=== PATIENT | female | born 1940 | race Caucasian/White ===

== ENCOUNTER 2018-02-25 04:06 | Inpatient (IN) | payer OTHER ==
[~2018-02-25] VITALS: Ht 170.2 cm; Wt 94.3 kg
--- NOTE | 2018-02-25 04:56 | ED DYSPNEA/ASTHMA COMPLAINT ---
History of Present Illness General Chief Complaint: Dyspnea (COPD, CHF, Other) Stated Complaint: BIBA SOB Source: patient, old records, EMS, W10 Exam Limitations: dementia Vital Signs & Intake/Output Vital Signs & Intake/Output Vital Signs Date Time Temp Pulse Resp B/P B/P Pulse O2 O2 Flow FiO2 Mean Ox Delivery Rate 02/25 0431 93 Nasal 2.0L Cannula 02/25 0415 97.8 100 20 106/59 91 Room Air Allergies Coded Allergies: Penicillins (Intermediate, UNKNOWN 02/25/18) tramadol (Intermediate, UNKNOWN 02/25/18) Triage Note: BIBA FROM ECF. PER EMS PT WAS FOUND TO BE SOB AND WAS 86=88%RA. ECF GAVE 1 DUO NEB WITHOUT IMPROVEMENT. PT RECIEVED ANOTHER NEB TX ENROUTE. PT PLACED ON MONITOR, O2 ON ROOM AIR 90-91%, PT PLACED ON 2 L NC 93%. PER ECF PT ALSO VOMITED COFFEE GROUND EMESIS. PT NOTED TO HAVE DARK STAINING IN MOUTH. PT ARRIVES COMPLAINING OF BILATERAL KNEE PAIN (CHRONIC). PT ALERT TO NAME AND YEAR, KNOWS SHES IN A HOSPITAL BUT NOT THE NAME OF IT. PT REFUSING LABS UNTIL "I GET SOMETHING FOR THE PAIN". DR SHAFFER AWARE. Triage Nurses Notes Reviewed? yes Onset: Just prior to arrival Duration: minute(s):, constant, continues in ED Timing: recent history Severity: moderate Activities at Onset: rest Prior Episodes/Possible Cause: occasional episodes Modifying Factors: Improves With: other (oxygen). Associated Symptoms: cough LMP (ages 10-50): post menopausal : No Patient currently breastfeeds: No HPI: Prior to admission shelter staff phone patient had episode of nausea vomiting followed by increased work of breathing shortness of breath. Her oxygen saturation was in the mid 80s she received supplemental O2 and DuoNeb. The patient complains of chronic knee pain. There's been no fever chills diarrhea chest pain cough headache dysuria rash bleeding. Past History Travel History Traveled to [place] past 21 day No Medical History Any Pertinent Medical History? see below for history Neurological: NONE EENT: NONE Cardiovascular: hyperlipidemia Respiratory: PNEUMONITIS Gastrointestinal: GERD Hepatic: NONE Renal: FRANCISCO URINARY RETENTION Musculoskeletal: osteoarthritis Psychiatric: anxiety, bipolar disease, depression, insomnia Endocrine: diabetes, VIT B DEFCICENCY Blood Disorders: anemia Cancer(s): NONE BURN OUT TENDER LACE/Reproductive: NONE Surgical History Surgical History: non-contributory Psychosocial History Tobacco Use: Never used ETOH Use: denies use Illicit Drug Use: denies illicit drug use Family History Hx Contributory? No Review of Systems Review of Systems Constitutional: Reports: no symptoms. EENTM: Reports: no symptoms. Respiratory: Reports: see HPI, short of breath. Cardiovascular: Reports: no symptoms. GI: Reports: see HPI, nausea, vomiting. Genitourinary: Reports: no symptoms. Musculoskeletal: Reports: no symptoms. Skin: Reports: no symptoms. Neurological/Psychological: Reports: no symptoms. Hematologic/Endocrine: Reports: no symptoms. Immunologic/Allergic: Reports: no symptoms. All Other Systems: Reviewed and Negative Physical Exam Physical Exam General Appearance: well developed/nourished, alert, awake, anxious, mild distress Head: atraumatic, normal appearance Eyes: Bilateral: normal appearance, PERRL, EOMI. Ears, Nose, Throat: normal pharynx, normal ENT inspection Neck: normal inspection, supple, full range of motion Respiratory: chest non-tender, decreased breath sounds, crackles, rhonchi Cardiovascular: regular rate/rhythm, normal peripheral pulses, norml femoral pulses equa Peripheral Pulses: 4+ carotid (R), 4+ carotid (L) Gastrointestinal: normal bowel sounds, non-tender, no organomegaly, pulsatile mass Extremities: normal inspection, normal capillary refill, normal range of motion, no edema Skin: intact, normal color, warm/dry Lymphatic: no anterior cervical mohan Core Measures ACS in differential dx? No CVA/TIA Diagnosis No Sepsis Present: No Sepsis Focused Exam Completed? No Progress Differential Diagnosis: bronchitis, CHF, COPD, pneumonia Plan of Care: Orders Procedure Date/time Status Consistent Carbohydrate 2 02/25 B Active LACTIC ACID 02/25 0722 Active OXYGEN SETUP (GEN) 02/25 0640 Active Saline Lock 02/25 0640 Active Admit to inpatient 02/25 0640 Active Vital Signs 02/25 0640 Active Activity/Ambulation 02/25 06 Active Code Status 02/25 0640 Active BLOOD CULTURE 02/25 042 Active TROPONIN LEVEL 02/25 422 Complete LIPASE 02/25 422 Complete LACTIC ACID 02/25 422 Complete COMPREHENSIVE METABOLIC PANEL 02/25 422 Complete CBC WITHOUT DIFFERENTIAL 02/25 422 Complete EKG 02/25 422 Active Current Medications Sig/Devin Start time Last Medication Dose Stop Time Status Admin Clindamycin 600 MG ONCE ONE 02/25 630 AC 02/25 (Cleocin) 02/25 659 06 Dextrose/Water 50 ML (D5W) Sodium Chloride 1,000 ML BOLUS ONE 02/25 600 AC 02/25 (Normal Saline 0.9%) 02/25 Sodium Chloride 1,000 ML BOLUS ONE 02/25 600 AC (Normal Saline 0.9%) 02/25 659 Sodium Chloride 1,000 ML BOLUS ONE 02/25 600 AC (Normal Saline 0.9%) 02/25 659 Laboratory Tests 02/25/18 0514: Anion Gap 11, Estimated GFR > 60, BUN/Creatinine Ratio 17.5, Glucose 122 H, Lactic Acid 2.7 H, Calcium 8.9, Total Bilirubin 0.2, AST 18, ALT 16, Alkaline Phosphatase 65, Troponin I < 0.01, Total Protein 6.7, Albumin 4.0, Globulin 2.7, Albumin/Globulin Ratio 1.5, Lipase 86, CBC w Diff NO MAN DIFF REQ, RBC 4.25, MCV 92.8, MCH 30.4, MCHC 32.7 L, RDW 14.2, MPV 6.6 L, Gran % 56.4, Lymphocytes % 31.4, Monocytes % 9.0, Eosinophils % 2.8, Basophils % 0.4, Absolute Granulocytes 3.1, Absolute Lymphocytes 1.7, Absolute Monocytes 0.5, Absolute Eosinophils 0.2, Absolute Basophils 0 Microbiology 02/25 601 BLOOD: Blood Culture - RECD 02/25 555 BLOOD: Blood Culture - RECD Diagnostic Imaging: Viewed by Me: Radiology Read. Discussed w/RAD: Radiology Read. CXR Impression: no acute abnormality, no infiltrates Initial ED EKG: normal axis, normal intervals, normal p-waves, normal QRS complex, normal sinus rhythm, no ST T wave changes Rhythm Strip: normal sinus rhythm Departure Departure Disposition: STILL A PATIENT Condition: Stable Clinical Impression Primary Impression: Lactic acidosis Secondary Impressions: Aspiration into lower respiratory tract Referrals: Dima Perez MD (PCP/Family) Departure Forms: Customer Survey General Discharge Information Admission Note Spoke With: Macario Gil MD Documentation of Exam: Documentation of any treatments & extenuating circumstances including Concerns Regarding Discharge (functional status, medication knowledge or non-compliance, living conditions, etc.) that warrant an admission rather than observation: Supplemental oxygen IV fluids IV antibiotics follow cultures serial lab exam medication adjustment continuing care discharge planning Critical Care Note Critical Care Note Critical Care Time: 30-74 min (40)
[2018-02-25 05:28] LABS: ABSOLUTE BASOPHIL COUNT 0 /CUMM (0.0-0.2); ABSOLUTE EOSINOPHIL COUNT 0.2 /CUMM (0.0-0.7); ABSOLUTE GRANULOCYTE CT 3.1 /CUMM (1.4-6.5); ABSOLUTE LYMPH COUNT 1.7 /CUMM (1.2-3.4); ABSOLUTE MONOCYTE COUNT 0.5 /CUMM (0.10-0.60); BASOPHIL % 0.4 % (0.0-2.0); EOSINOPHIL % 2.8 % (0-5); GRANULOCYTE % 56.4 % (42.2-75.2); HEMATOCRIT 39.5 % (37-47); MEAN CORPUSCULAR HGB 30.4 PG (27.0-31.0); MEAN CORPUSCULAR HGB CONC 32.7 G/DL (33.0-37.0); MEAN CORPUSCULAR VOLUME 92.8 FL (81.0-99.0); MEAN PLATELET VOLUME 6.6 FL (7.4-10.4); PLATELET COUNT 302 /CUMM (130-400); RBC DISTRIBUTION WIDTH 14.2 % (11.5-14.5); RED BLOOD CELL CT 4.25 /CUMM (4.20-5.40); WHITE BLOOD CELL COUNT 5.5 /CUMM (4.8-10.8)
--- NOTE | 2018-02-25 05:32 | RADIOLOGY REPORT ---
EXAMINATION: XR PORTABLE CHEST CLINICAL INFORMATION: Nausea/vomiting, cough, hypoxia, rales COMPARISON: None TECHNIQUE: Portable frontal view of the chest was obtained. FINDINGS: Lung volumes are symmetric. No focal consolidation is seen. No evidence of pneumothorax, significant pleural effusion, or pulmonary edema. Cardiac size appears within normal limits accounting for patient rotation. There is partial visualization of plate and screw fixation hardware in the right humerus. IMPRESSION: No acute cardiopulmonary findings.
--- NOTE | 2018-02-25 07:41 | History & Physical ---
Conor WINN,[facility] 02/25/18 0741: General Information and HPI MD Statement: I have seen and personally examined ANGELICA CORDERO and documented this H&P. The patient is a 77 year old F who presented with a patient stated chief complaint of dyspnea. Source of Information: patient, W10, [facility] Exam Limitations: no limitations History of Present Illness: 77-year-old lady with a past medical history significant for bipolar with manuel, hyponatremia, is brought in by ambulance from [facility] for evaluation of dyspnea and desaturation. Documentation from [facility] and discussion with the staff indicates that the patient was noted to be experiencing shortness of breath with O2 sats obtained showing a saturation between 86-88%. EMS was activated and patient received 1 DuoNeb without any significant improvement and was therefore brought in to [facility] ED. when seen by the medical staff, patient was sleeping (had just received a dose of Percocet), she was however easily awoken by verbal stimuli. Patient does endorse a 1-2 day history of nonproductive cough with some shortness of breath. She reports her dyspnea is not related to exertion. She denies any fever, chills,cp/palpitation , sick contacts, recent travel, exposure to any chemicals/irritant/pets, or recent URI. There is also report that patient had one episode of possibly "coffee-ground emesis". When speaking with the nursing staff at the [facility], they reported that the coffee-ground emesis was questionable and patient does not have any prior history of similar events, abdominal pain, black tarry stool, or rectal bleeding. She is however on meloxicam for chronic pain. Review of system is negative for any orthopnea, PND, lower extremity swelling, or unintentional weight gain. At baseline, patient is wheelchair-bound and assist of 1, this is due to her chronic knee pain which she states makes her very weak and she is not able to ambulate. Allergies/Medications Allergies: Coded Allergies: Penicillins (Intermediate, UNKNOWN 02/25/18) tramadol (Intermediate, UNKNOWN 02/25/18) Home Med list Acetaminophen (Tylenol Extra Strength) 500 MG TABLET 2 TAB PO BID PAIN ( Reported) Cyanocobalamin (Vitamin B-12) 1,000 MCG TABLET 1 TAB PO DAILY VITAMIN SUPPORT (Reported) Ferrous Sulfate 325 MG (65 MG IRON) TABLET 1 TAB PO BID IRON, VITAMIN ( Reported) Hydroxyzine Hydrochloride (Atarax) 50 MG TAB 1 TAB PO QPM SLEEP (Reported) Meloxicam 7.5 MG TABLET 1 TAB PO DAILY PAIN (Reported) Olanzapine 10 MG TABLET 1 TAB PO DAILY MENTAL HEALTH (Reported) Omeprazole 40 MG CAPSULE.DR 1 CAP PO DAILY GI (Reported) Pregabalin (Lyrica) 200 MG CAPSULE 1 CAP PO TID PAIN (Reported) Quetiapine Fumarate (Seroquel) 100 MG TABLET 1 TAB PO 0800,1400 MENTAL HEALTH (Reported) Quetiapine Fumarate (Seroquel) 50 MG TABLET 1 TAB PO 0800,1400 MENTAL HEALTH (Reported) Quetiapine Fumarate (Seroquel) 400 MG TABLET 1 TAB PO QPM MENTAL HEALTH ( Reported) Quetiapine Fumarate (Seroquel) 200 MG TABLET 1 TAB PO QPM MENTAL HEALTH ( Reported) Past History Travel History Traveled to [place] past 21 day No Medical History Neurological: NONE EENT: NONE Cardiovascular: hyperlipidemia Respiratory: PNEUMONITIS Gastrointestinal: GERD Hepatic: NONE Renal: FRANCISCO URINARY RETENTION Musculoskeletal: osteoarthritis Psychiatric: anxiety, bipolar disease, depression, insomnia Endocrine: diabetes, VIT B DEFCICENCY Blood Disorders: anemia Cancer(s): NONE DIRECTOR GENERAL/Reproductive: NONE Surgical History Surgical History: non-contributory Past Family/Social History Psychosocial History ETOH Use: denies use Illicit Drug Use: denies illicit drug use Review of Systems Review of Systems Constitutional: Reports: see HPI. EENTM: Reports: no symptoms. Cardiovascular: Reports: no symptoms. Respiratory: Reports: see HPI. GI: Reports: see HPI. Genitourinary: Reports: no symptoms. Musculoskeletal: Reports: no symptoms. Exam & Diagnostic Data Last 24 Hrs of Vital Signs/I&O Vital Signs Date Time Temp Pulse Resp B/P B/P Pulse O2 O2 Flow FiO2 Mean Ox Delivery Rate 02/25 0815 97.5 88 18 123/54 97 Nasal 2.0L Cannula 02/25 0431 93 Nasal 2.0L Cannula 02/25 0415 97.8 100 20 106/59 91 Room Air Intake & Output 02/25 1600 02/25 0800 02/25 0000 Intake Total Output Total Balance Patient 90.718 kg Weight Weight Estimated Measurement Method Physical Exam General Appearance Alert, Oriented X3, Cooperative Skin No Significant Lesion Skin Temp/Moisture Exam: Warm/Dry Sepsis Skin Exam (color): Normal for Ethnicity HEENT Atraumatic, Mucous Membr. moist/pink Neck No JVD Lymphatic Cervical nl Cardiovascular Regular Rate, Normal S1, Normal S2 Lungs mild prolonged expiratory wheezing b/l. Abdomen Normal Bowel Sounds, Soft, No Tenderness Neurological Normal Gait, Normal Speech, Sensation Intact, strength on LE is 2/5 b/l (chronic). Extremities No Cyanosis, No Edema Vascular Pulses Symmetrical Last 24 Hrs of Labs/Jose: Laboratory Tests 02/25/18 0514: Anion Gap 11, Estimated GFR > 60, BUN/Creatinine Ratio 17.5, Glucose 122 H, Lactic Acid 2.7 H, Calcium 8.9, Total Bilirubin 0.2, AST 18, ALT 16, Alkaline Phosphatase 65, Troponin I < 0.01, Total Protein 6.7, Albumin 4.0, Globulin 2.7, Albumin/Globulin Ratio 1.5, Lipase 86, CBC w Diff NO MAN DIFF REQ, RBC 4.25, MCV 92.8, MCH 30.4, MCHC 32.7 L, RDW 14.2, MPV 6.6 L, Gran % 56.4, Lymphocytes % 31.4, Monocytes % 9.0, Eosinophils % 2.8, Basophils % 0.4, Absolute Granulocytes 3.1, Absolute Lymphocytes 1.7, Absolute Monocytes 0.5, Absolute Eosinophils 0.2, Absolute Basophils 0 Microbiology 02/25 06 BLOOD: Blood Culture - RECD 02/25 555 BLOOD: Blood Culture - RECD Diagnostic Data EKG Results SNR CXR Results No acute infectious pathology Assessment/Plan Assessment: 77-year-old lady with a past medical history significant for bipolar with manuel, hyponatremia presents for evaluation of acute onset hypoxia (86% saturation) with complains of 1-2 days of nonproductive cough. Afebrile on presentation and with no leukocytosis however lactic acid slightly elevated. Chest x-ray unremarkable for any acute infectious pathology. Impression Acute hypoxic respiratory failure. As evident by O2 sats of 86% requiring up to 5 L to maintain saturations, and noticeable increased use of accessory muscle with a respiratory rate of 20. Dyspnea. Acute onset and not exertional dependent. Most likely 2/2 to aspiration (high suspicion of aspiration given the reported emesis). Given no fevers/chills/leukocytosis her presentation is mores suggestive of aspiration pneumonitis rather than aspiration PNA. ACS is another possibility, however given the lack of chest pain, negative troponin, and unremarkable EKG, this is unlikely. Acute decompensated heart failure is also another possibility for dyspnea, however patient does not present with clinical symptoms to suggest this (no JVD, no crackles, no lower extremity edema, and no vascular congestion on chest x-ray). Elevated lactic acid. Infectious vs hypoxia (?). History of chronic disease; bipolar with manuel, hyponatremia. Impression Admit to general medicine floor O2 supplementation to keep sats above 90% TRC nebs as needed Trend lactic acid watch off ABX Follow-up on blood cultures, sputum cultures and urine antigen for Legionella and strep GI prophylaxis Stop meloxicam Monitor for any coffee-ground emesis Guaiac all stools were now (patient refused rectal exam during examination) Patient has another episode of "coffee-ground emesis", will consider GI consult We will trend hemoglobin tomorrow morning, she becomes hemodynamically unstable or has another episode of coffee-ground emesis will obtain more frequent CBCs Continue home psych meds CODE STATUS: Full code DVT prophylaxis: Enoxaparin Patient has a conservator Monique Qureshi and can be reached at [phone]. As Ranked By This Provider Problem List: 1. Acute hypoxemic respiratory failure Core Measures/Misc (02/21) Acute Coronary Syndrome ACS Diagnosis: No Congestive Heart Failure Congestive Heart Failure Diagnosis No Cerebrovascular Accident CVA/TIA Diagnosis: No VTE (View Protocol) VTE Risk Factors Acute Medical Illness No Mechanical VTE Prophylaxis d/t N/A MechProphylax Ordered No VTE Pharm Prophylaxis d/t NA PharmProphylax ordered Sepsis (View protocol) Sepsis Present: No If YES complete Sepsis Event Note If YES complete Sepsis Event Note Mira Polk 02/25/18 1128: Core Measures/Misc (02/21) Sepsis (View protocol) If YES complete Sepsis Event Note If YES complete Sepsis Event Note Attending MD Review Statement Attending Statement Attending MD Statement: examined this patient, discuss w/resident/PA/HYDROELECTRIC STATION OPERATOR, agreed w/resident/PA/HYDROELECTRIC STATION OPERATOR, discussed with family, reviewed EMR data (avail), discussed with nursing, discussed with case mgmt, reviewed images, amended to note Attending Assessment/Plan: Patient admitted to [facility] for possible aspiration pneumonitis. Start oxygen supplementation, TRCs, send cultures and monitor for fevers. If spikes fever consider addition of abx. Obtain speech/swallow recs and gentle hydration. PPI daiy. GI/DVT prophyalxis
[2018-02-25] MEDS ORDERED: OMEPRAZOLE40 M1 PO (08:06)
[2018-02-25] MEDS ORDERED: MELOXICAM7.5 M1 PO (08:07)
[2018-02-25] MEDS ORDERED: VITAMIN B-121000 MC3 PO (08:08)
[2018-02-25] MEDS ORDERED: OLANZAPINE10 M1 PO (08:08)
[2018-02-25] MEDS ORDERED: FERROUS SULFAT325 M3 PO (08:09)
[2018-02-25] MEDS ORDERED: SEROQUEL100 M1 PO (08:10)
[2018-02-25] MEDS ORDERED: SEROQUEL50 M1 PO (08:11)
[2018-02-25] MEDS ORDERED: LYRICA200 M1 PO (08:11)
[2018-02-25] MEDS ORDERED: SEROQUEL400 M1 PO (08:12)
[2018-02-25] MEDS ORDERED: HYDROXYZINE HCL50 M1 PO (08:12)
[2018-02-25] MEDS ORDERED: SEROQUEL200 M1 PO (08:14)
[2018-02-25] MEDS ORDERED: TYLENOL EXTRA500 M2 PO (08:15)
[2018-02-25 09:45] VITALS: BP 138/66
[2018-02-25 15:58] VITALS: BP 140/80
--- NOTE | 2018-02-25 18:22 | Discharge Summary ---
Visit Information Visit Dates Admission Date: 02/25/18 Discharge Date: 02/28/2018 Hospital Course Course Attending Physician: Macario Gil MD Primary Care Physician: Dima Perez MD Hospital Course: 77-year-old lady with a past medical history significant for bipolar with manuel, hyponatremia, is brought in by ambulance from [facility] for evaluation of dyspnea and desaturation. Documentation from [facility] and discussion with the staff indicates that the patient was noted to be experiencing shortness of breath with O2 sats obtained showing a saturation between 86-88%. when seen by the medical staff, patient was sleeping (had just received a dose of Percocet), she was however easily awoken by verbal stimuli. Patient does endorse a 1-2 day history of nonproductive cough with some shortness of breath. There is also report that patient had one episode of possibly "coffee-ground emesis". When speaking with the nursing staff at the [facility], they reported that the coffee-ground emesis was questionable and patient does not have any prior history of similar events, abdominal pain, black tarry stool, or rectal bleeding. She is however on meloxicam for chronic pain. Review of system is negative for any orthopnea, PND, lower extremity swelling, or unintentional weight gain. At baseline, patient is wheelchair-bound and assist of 1, this is due to her chronic knee pain which she states makes her very weak and she is not able to ambulate. Vitals at the time of admission 97.8, 100, 20, blood pressure 106/50, saturating at 91 ON 2L. Labs WBC 5.5, hemoglobin 12.9 and hematocrit 39, platelets 302 Sodium 134, potassium 4.4 BUN 14 and creatinine 0.8 CXR No acute cardiopulmonary findings. Acute hypoxic respiratory failure/aspiration pneumonitis She was admitted to general medicine floor for acute onset of dyspnea. Most likely secondary to aspiration given reported emesis. She denied any fever, chills, leukocytosis. Her presentation looked more likely aspiration pneumonitis rather than aspiration pneumonia. She is also hypoxic requiring up to 5 L oxygen supplementation, later tapered down. She was provided [facility] nebs. She was monitored off from antibiotics. Follow blood cultures, sputum cultures, urine Legionella antigen and strep antigen were negative. She remained afebrile with no leukocytosis. Her oxygen requirement came down to 1 L. Questionable coffee-ground emesis She was given GI prophylaxis with omeprazole. Meloxicam was stopped. She was monitored for further episodes of any coffee-ground emesis. Guaiac stools were done which were negative. Denied any more hematemesis, melena, hematochezia. Vitals remained stable. Advised to cut down on meloxicam Lactic acidosis Lactic acid 3.5 at the time of admission. Received aggressive hydration after which lactic acid was normal. Elevated d-dimer Patient was found to have elevated d-dimer 790. CTA chest was done, pulmonary embolism was ruled out. Incidental CAT scan finding-pulmonary nodule A 10 x 15 mm slightly spiculated pulmonary nodule in the right upper lobe is concerning for a malignant process. Spoke with the Dr. Hernandez, computer hardware developer, recommended outpatient follow-up. Patient was notified about the nodule, advised to follow-up with Dr. Hernandez as an outpatient basis Anxiety/mental health Continued Seroquel home doses Continued olanzapine 10 mg daily Pain Continued Lyrica 200 mg 3 times daily GERD Continue omeprazole 40 daily CODE STATUS: Full code DVT prophylaxis: Enoxaparin Patient has a conservator Monique Qureshi and can be reached at [phone]. Allergies: Coded Allergies: Penicillins (Intermediate, UNKNOWN 02/25/18) tramadol (Intermediate, UNKNOWN 02/25/18) Pertinent Lab Results: cta chest Suboptimal exam. No evidence of acute PE in central or proximal segmental branches of pulmonary arteries. A 10 x 15 mm slightly spiculated pulmonary nodule in the right upper lobe is concerning for a malignant process. 5 mm noncalcified left upper lobe pulmonary nodule. Atherosclerosis and coronary artery disease. Age indeterminate compression deformity of T12 vertebral body. Slight posterior bulge of the upper endplate toward the spinal canal is noted. No evidence of a spinal canal compromise. VTE: negative. Disposition Summary Disposition Principal Diagnosis: Acute hypoxic respiratory failure Incidental finding of pulmonary nodule Additional Diagnosis: Aspiration pneumonitis Discharge Disposition: SNF Discharge Instructions General Discharge Information Code Status: Full Code Patient's Diet: As tolerated Patient's Activity: As tolerated Follow-Up Instructions/Appts: Follow-up PCP in 1 week after discharge F/U with Dr. Hernandez computer hardware developer in 1-2 weeks after discharge for follow-up of right upper lobe incidental lung nodule Medications at Discharge Discharge Medications: Continue taking these medications: Omeprazole (Omeprazole) 40 MG CAPSULE.DR 1 Capsule ORAL DAILY Comments: Last Taken: 02/28/18 Time: 6:00 AM Meloxicam (Meloxicam) 7.5 MG TABLET 1 Tablet ORAL DAILY Comments: NOT GIVEN IN HOSPITAL Olanzapine (Olanzapine) 10 MG TABLET 1 Tablet ORAL DAILY Comments: Last Taken: 02/28/18 Time: 10:45 AM Cyanocobalamin (Vitamin B-12) 1,000 MCG TABLET 1 Tablet ORAL DAILY Comments: NOT GIVEN IN HOSPITAL Ferrous Sulfate (Ferrous Sulfate) 325 MG (65 MG IRON) TABLET 1 Tablet ORAL TWICE DAILY Comments: NOT GIVEN IN HOSPITAL Quetiapine Fumarate (Seroquel) 100 MG TABLET 1 Tablet ORAL 0800,1400 Comments: 150MG DOSE Quetiapine Fumarate (Seroquel) 50 MG TABLET 1 Tablet ORAL 0800,1400 Comments: 150MG DOSE Last Taken: 02/28/18 Time: 1:45 PM Pregabalin (Lyrica) 200 MG CAPSULE 1 Capsule ORAL THREE TIMES DAILY Comments: Last Taken: 02/28/18 Time: 1:45 PM Hydroxyzine Hydrochloride (Atarax) 50 MG TAB 1 Tablet ORAL Every night Comments: Last Taken: 02/27/18 Time: 9:00 PM Quetiapine Fumarate (Seroquel) 400 MG TABLET 1 Tablet ORAL Every night Comments: 600MG DOSE Quetiapine Fumarate (Seroquel) 200 MG TABLET 1 Tablet ORAL Every night Comments: 600MG DOSE Last Taken: 02/27/18 Time: 9:00 PM Acetaminophen (Tylenol Extra Strength) 500 MG TABLET 2 Tablet ORAL TWICE DAILY Comments: Last Taken: GIVEN 650MG TYLENOL 02/28/18 Time: 9:10 AM Copies To: Chris WINN,Dima Dawson Attending MD Review Statement Documenting Attending: Mira Polk MD
[2018-02-25 21:56] VITALS: BP 164/96
[2018-02-25 21:57] VITALS: BP 138/62; BP 164/96
[2018-02-26 06:20] VITALS: BP 164/90
[2018-02-26 08:30] LABS: ABSOLUTE BASOPHIL COUNT 0 /CUMM (0.0-0.2); ABSOLUTE EOSINOPHIL COUNT 0 /CUMM (0.0-0.7); ABSOLUTE GRANULOCYTE CT 4.4 /CUMM (1.4-6.5); ABSOLUTE MONOCYTE COUNT 0.6 /CUMM (0.10-0.60); BASOPHIL % 0.1 % (0.0-2.0); EOSINOPHIL % 0.1 % (0-5); GRANULOCYTE % 73.4 % (42.2-75.2); MEAN CORPUSCULAR HGB 30.8 PG (27.0-31.0); MEAN CORPUSCULAR VOLUME 93.3 FL (81.0-99.0); MEAN PLATELET VOLUME 6.9 FL (7.4-10.4); PLATELET COUNT 282 /CUMM (130-400); RBC DISTRIBUTION WIDTH 13.9 % (11.5-14.5); RED BLOOD CELL CT 3.86 /CUMM (4.20-5.40)
--- NOTE | 2018-02-26 09:53 | PN- Housestaff ---
Flor WINN,Nehemiah 02/26/18 0953: Subjective Follow-up For: -Acute hypoxic respiratory failure -Possible aspiration pneumonia/pneumonitis -Elevated lactic acid Subjective: Patient seen and examined. She is seen sitting upright in her chair at bedside resting comfortably on supplemental oxygen via nasal cannula. She appears to be in no acute distress. She reports feeling well and has no complaints and is not sure why she is here in the hospital. She reports that her breathing is well and denies using supplemental oxygen when she is outside of the hospital. She otherwise denies any fever, chills, chest pain, shortness of breath, cough, nausea, vomiting, diarrhea, constipation, or urinary complaints. Review of Systems Constitutional: Reports: see HPI. Objective Last 24 Hrs of Vital Signs/I&O Vital Signs Date Time Temp Pulse Resp B/P B/P Pulse O2 O2 Flow FiO2 Mean Ox Delivery Rate 02/26 0800 Nasal 2.0L Cannula 02/26 0620 98.2 102 18 164/90 95 Nasal Cannula 02/26 0000 Nasal 2.0L Cannula 02/25 2157 98.4 96 20 164/96 94 Nasal Cannula 02/25 2156 98.4 96 20 164/96 94 Nasal Cannula 02/25 1558 98.3 88 22 140/80 93 02/25 1316 Nasal 2.0L Cannula Intake & Output 02/26 1600 02/26 0800 02/26 0000 Intake Total 1000 500 Output Total 1000 Balance 0 500 Intake, IV 600 300 Intake, Oral 400 200 Output, Urine 1000 Patient 94.347 kg 94.035 kg Weight Physical Exam General Appearance: Alert, Oriented X3, Cooperative, No Acute Distress Other Physical Findings: General - well developed, well-nourished elderly woman in no acute distress HEENT - NCAT, PERRL, EOMI, anicteric sclera, nasal cannula in place Neck- Supple, no JVD/HJR, no bruits, trachea midline, thyroid normal Cardio - S1, S2 w/o murmurs/gallops/rubs; regular rate and rhythm Resp - Clear to auscultation bilaterally GI - Soft, nontender, nondistended, bowel sounds present Neuro - Awake and alert, CN II - XII grossly intact Extremities - No edema, pulses intact Current Medications: Current Medications Sig/Devin Start time Last Medication Dose Route Stop Time Status Admin Acetaminophen 1,000 MG Q6P PRN 02/25 1400 AC N/A 1 UNIT IV Acetaminophen 650 MG Q6P PRN 02/25 1315 AC 02/26 PO 0526 Enoxaparin Sodium 40 MG DAILY 02/25 0905 AC 02/26 SC 0910 Hydroxyzine HCl 50 MG QPM 02/25 2100 AC 02/25 PO 2014 Nystatin 1 ZAIRE BID 02/26 1000 AC TOP Olanzapine 10 MG DAILY 02/26 0900 AC 02/26 PO 09 Omeprazole 40 MG DAILY AC 02/26 0700 AC 02/26 PO 0527 Oxycodone HCl 5 MG Q6 PRN 02/25 1315 AC 02/26 PO 09 Pantoprazole Sodium 40 MG DAILY 02/25 1000 DC 02/25 IV 1111 Patient Medication 1 ED ONE ONE 02/25 1845 DC Teaching ED 02/25 1846 Pregabalin 0 .STK-MED ONE 02/25 1423 DC PO Pregabalin 200 MG TID 02/25 1400 AC 02/26 PO 09 Quetiapine Fumarate 600 MG AT BEDTIME 02/25 2100 AC 02/25 PO 2014 Quetiapine Fumarate 150 MG 0800,1400 02/25 1400 AC 02/26 PO 09 Sodium Chloride 1,000 ML Q13H 02/25 1545 DC 02/25 IV 02/26 0444 1709 Last 24 Hrs of Lab/Jose Results Last 24 Hrs of Labs/Mics: Laboratory Tests 02/26/18 0745: Lactic Acid 1.1 02/26/18 0745: Anion Gap 7, Estimated GFR > 60, BUN/Creatinine Ratio 18.6, CBC w Diff NO MAN DIFF REQ, RBC 3.86 L, MCV 93.3, MCH 30.8, MCHC 33.0, RDW 13.9, MPV 6.9 L, Gran % 73.4, Lymphocytes % 16.3 L, Monocytes % 10.1 H, Eosinophils % 0.1, Basophils % 0.1, Absolute Granulocytes 4.4, Absolute Lymphocytes 1.0 L, Absolute Monocytes 0.6, Absolute Eosinophils 0, Absolute Basophils 0 02/25/18 1839: Lactic Acid Cancelled 02/25/18 1710: Lactic Acid 2.6 H 02/25/18 1600: Lactic Acid Cancelled 02/25/18 1539: Lactic Acid Cancelled 02/25/18 1410: Lactic Acid 3.1 H Microbiology 02/26 1123 LOWER RESP: Respiratory Culture - COLB 02/26 1123 LOWER RESP: Gram Stain - COLB 02/25 2300 URINE ROUT: Legionella Antigen - RECD 02/25 2300 URINE ROUT: Streptococcus pneumoniae Antigen (M - RECD Assessment/Plan Assessment: 77-year-old woman with multiple medical problems brought in by ambulance from a detention facility for evaluation of shortness of breath and hypoxia with an episode of emesis concerning for aspiration pneumonia/pneumonitis. Patient continues to feel well and has no complaints. Vital signs remain within normal limits. Physical examination is unremarkable. Labs today including CBC and serum chemistry demonstrate a normal white count and are otherwise unremarkable. Lactic acid has normalized. Patient remains afebrile with a normal white count and improving respiratory status. Patient possibly had a aspiration pneumonitis without resulting infection secondary to her reported "coffee-ground emesis". Supplemental oxygen is to be tapered off as tolerated. D-dimer is to be checked to assess for pulmonary embolism. Patient is an anticipated discharge back to short-term rehab tomorrow. Problem list -Acute hypoxic respiratory failure -Possible aspiration pneumonia/pneumonitis -Elevated lactic acid, resolved -Reported coffee-ground emesis, resolved -Bipolar disorder -Chronic hyponatremia -GERD -Anxiety/depression -Diabetes mellitus -Hyperlipidemia Plan -Continue general medicine floor admission -Aspiration precautions -elevate head of bed -Supplemental oxygen, goal 88-92%, taper as tolerated -Total respiratory care -GI prophylaxis with omeprazole -Continue home meds: Atarax, olanzapine, Lyrica, Seroquel -Follow cultures and sensitivities -Check d-dimer, consider CTA if elevated when age corrected -Pain control with acetaminophen, oxycodone -Regular diet (chopped/thin) -DVT prophylaxis with Lovenox -Full code -Conservator Monique Qureshi and can be reached at [phone] -Obtain records from [facility] Problem List: 1. Acute hypoxemic respiratory failure Pain Ratin Pain Location: None Pain Goal: Remain pain free Pain Plan: See assessment Tomorrow's Labs & Rationales: None Jessica Person MD 02/26/18 1048: Attending Review Statement Attending Statement Attending Statement: examined this patient, discuss w/resident/PA/REGISTRY RN, agreed w/resident/PA/REGISTRY RN, reviewed EMR data (avail), discussed with nursing, amended to note Attending Assessment/Plan: Patient seen and examined. Sitting up in chair. Not in acute distress. Alert and oriented to person and time. Denies shortness of breath. Denies cough. Denies difficulty swallowing. Speech is intact. She is forgetful. She does not recall why she is in the hospital. She is unable to provide any reasonable history. Answer simple questions appropriately. No issues overnight reported by nursing staff. Verbal evaluation done yesterday noted. She is noted to eat rapidly despite cues. Diet was downgraded to CHOP with thin liquids. Vital Signs Date Time Temp Pulse Resp B/P B/P Pulse O2 O2 Flow FiO2 Mean Ox Delivery Rate 02/26 0800 Nasal 2.0L Cannula 02/26 0620 98.2 102 18 164/90 95 Nasal Cannula 02/26 0000 Nasal 2.0L Cannula 02/257 98.4 96 20 164/96 94 Nasal Cannula 02/25 2156 98.4 96 20 164/96 94 Nasal Cannula 02/25 1558 98.3 88 22 140/80 93 02/25 1316 Nasal 2.0L Cannula HEENT: Left facial droop. Pupils equal and reactive. Neurologic: Power is 4/5 right upper and lower extremities. 3/5 left upper and lower extremities. No pronator drift noted. Some contracture of her left fingers. Mild left facial droop. Speech intact. Heart: S1-S2 regular Lungs: Clear bilaterally Abdomen: Soft and nontender Extremities no pedal edema I had an extensive conversation with patient's conservator today. Patient has a conservative as well, patient's daughter is not involved in her care, her current conservator was appointed during the hospitalization in [facility] about 6 months ago. Problems: 1. Dyspnea -Resolved. Presumed to be secondary to aspiration from vomiting at the facility. -No evidence of pneumonia on imaging. -No need for antibiotic therapy at present. -Wean down oxygen supplementation as tolerated. -Check d-dimer. If significantly elevated obtain CT angiogram to rule out pulmonary embolism. 2. Dysphagia. -Diet downgraded by speech therapist. -Aspiration precautions at all times. 3. Neurologic deficits -Query chronicity. -Obtain records from [facility] 4. Bipolar disorder -Continue her chronic medications. 5. Disposition: -If patient remains clinically stable, no evidence of pulmonary embolism and neurologic symptoms are chronic she may be discharged back to the detention facility where she is currently on long-term care.
[2018-02-26 15:31] VITALS: BP 120/60
[2018-02-26 22:06] VITALS: BP 126/60
[2018-02-27 06:20] VITALS: BP 142/68
[2018-02-27 12:06] LABS: ABSOLUTE BASOPHIL COUNT 0 /CUMM (0.0-0.2); ABSOLUTE EOSINOPHIL COUNT 0.3 /CUMM (0.0-0.7); ABSOLUTE GRANULOCYTE CT 3.3 /CUMM (1.4-6.5); ABSOLUTE LYMPH COUNT 1.7 /CUMM (1.2-3.4); ABSOLUTE MONOCYTE COUNT 0.7 /CUMM (0.10-0.60); BASOPHIL % 0.1 % (0.0-2.0); EOSINOPHIL % 4.7 % (0-5); GRANULOCYTE % 55.1 % (42.2-75.2); HEMATOCRIT 36.8 % (37-47); MEAN CORPUSCULAR HGB 30.5 PG (27.0-31.0); MEAN CORPUSCULAR HGB CONC 32.8 G/DL (33.0-37.0); MEAN CORPUSCULAR VOLUME 92.9 FL (81.0-99.0); MEAN PLATELET VOLUME 6.7 FL (7.4-10.4); PLATELET COUNT 274 /CUMM (130-400); RBC DISTRIBUTION WIDTH 14.6 % (11.5-14.5); RED BLOOD CELL CT 3.97 /CUMM (4.20-5.40); WHITE BLOOD CELL COUNT 6.1 /CUMM (4.8-10.8)
--- NOTE | 2018-02-27 12:21 | PN- Att Addend ---
Attending Addendum Attending Brief Note Patient seen and examined. Resting comfortably not in any acute distress. No issues overnight. She remains afebrile hemodynamically stable. She is tolerating her meals with no complaints. On examination she is not in any acute distress. Lungs are clear to auscultation bilaterally. She is maintaining saturation of 92% on 2 L of oxygen. Recommendations: -Patient has no radiologic or clinical evidence of pneumonia. She remains afebrile hemodynamically stable off oxygen however she continues to require oxygen supplementation. She shows no evidence of volume overload. -In view of her persistent hypoxia and elevated d-dimer recommend obtaining CT angiogram to rule out pulmonary embolism. -If CT imaging showed no evidence of PE would recommend echocardiogram to rule out pulmonary hypertension. -Continue modified diet. Continue aspiration precautions. Continue supportive care. -Obtain results of baseline history from [facility].
[2018-02-27 14:56] VITALS: BP 110/60
--- NOTE | 2018-02-27 17:32 | CT SCAN REPORT ---
EXAMINATION: CT ANGIOGRAM OF THE CHEST WITH AND WITHOUT CONTRAST (CT PULMONARY ANGIOGRAM FOR PE) CLINICAL INFORMATION: Persistent hypoxia and elevated d-dimer. COMPARISON: None TECHNIQUE: Prior to contrast administration, noncontrast localization images were obtained. Subsequently, multidetector volumetric imaging was performed from the thoracic inlet to below the diaphragms following the administration of 95 mL Optiray 320 intravenous contrast. No contrast reaction reported. Sagittal, coronal, and MIP oblique sagittal reformatted images were obtained on the CT workstation, uploaded to PACS, and reviewed. Total exam dose-length product 489.22 mGy-cm. FINDINGS: QUALITY OF STUDY/CONTRAST BOLUS: Suboptimal. PULMONARY ARTERIES: No central or proximal segmental pulmonary emboli. Evaluation of more distal segmental branches of pulmonary arteries is limited. THORACIC AORTA: No aneurysm or dissection. LUNG: There are mild centrilobular emphysematous changes of the lungs. There is a 10 x 15 mm slightly spiculated pulmonary nodule in the medial right upper lobe, as seen on axial image 11/56 from series 3 and coronal image 48/87 from series 201. It is concerning for a malignant nodule. There is a 5 mm noncalcified pulmonary nodule in the posterior left upper lobe, seen on axial image 84/441 from series 2. There are linear densities in the right lower lobe. These findings could represent atelectatic changes. There is also mild peribronchial wall thickening of the mild tubular bronchiectasis in the right lower lobe. PLEURA: No pleural effusion or pneumothorax. MEDIASTINUM: Normal heart size. No pericardial effusion. Atherosclerotic calcifications of the coronary arteries are noted. No hilar or mediastinal lymphadenopathy. No evidence of septal bowing or right heart strain. CHEST WALL/AXILLA: No axillary or internal mammary lymphadenopathy. OSSEOUS STRUCTURES: There is compression deformity of the T12 vertebral body, better seen on sagittal image 46/93. There is mild, 3 mm posterior bulge of the upper endplate of T12 vertebral body. There is mild thickening of the cortex of the body of the sternum, seen on sagittal images, image 48/93. No definite acute fracture line is seen. There is mild compression deformity of the upper endplate of T9 vertebral body. UPPER ABDOMEN: A moderate size hiatal hernia is present. No reflux of contrast into the hepatic veins to suggest elevated right heart pressures. IMPRESSION: Suboptimal exam. No evidence of acute PE in central or proximal segmental branches of pulmonary arteries. A 10 x 15 mm slightly spiculated pulmonary nodule in the right upper lobe is concerning for a malignant process. 5 mm noncalcified left upper lobe pulmonary nodule. Atherosclerosis and coronary artery disease. Age indeterminate compression deformity of T12 vertebral body. Slight posterior bulge of the upper endplate toward the spinal canal is noted. No evidence of a spinal canal compromise. VTE: negative.
[2018-02-27 20:00] VITALS: BP 135/70
[2018-02-28 06:10] VITALS: BP 136/78
--- NOTE | 2018-02-28 07:36 | PN- Housestaff ---
Ana Guzman 02/28/18 0736: Subjective Follow-up For: Aspiration pneumonitis Subjective: Patient was seen and examined at bedside. She does not know why she was brought to the hospital. She doesn not have any complaints at present. She was informed about the spiculated mass in her lung. She was advised to schedule an out- patient appointment for the follow-up of the mass. She had reservations about that since she does not have transportation. She denies fever, chills, nausea, vomiting, diarrhea or constipation. Review of Systems Constitutional: Reports: see HPI. Objective Last 24 Hrs of Vital Signs/I&O Vital Signs Date Time Temp Pulse Resp B/P B/P Pulse O2 O2 Flow FiO2 Mean Ox Delivery Rate 02/28 1146 Nasal 2.0L Cannula 02/28 0610 98.2 95 20 136/78 93 Nasal Cannula 02/28 0000 Nasal 2.0L Cannula 02/27 2000 98.2 92 17 135/70 89 Nasal Cannula 02/27 1600 Nasal 2.0L Cannula Intake & Output 02/28 1600 02/28 0800 02/28 0000 Intake Total 240 500 Output Total Balance 240 500 Intake, Oral 240 500 Number 1 Bowel Movements Physical Exam General Appearance: Alert, Oriented X3, Cooperative, No Acute Distress Skin: No Rashes Neck: Supple Cardiovascular: Regular Rate, Normal S1, Normal S2 Lungs: Clear to Auscultation, Normal Air Movement Abdomen: Normal Bowel Sounds, Soft, mild abdominal distension Extremities: No Edema, Normal Pulses Assessment/Plan Assessment: 77-year-old woman with multiple medical problems brought in by ambulance from a nursing home facility for evaluation of shortness of breath and hypoxia with an episode of emesis concerning for aspiration pneumonia/pneumonitis. Patient continues to feel well and has no complaints. Vital signs remain within normal limits. Physical examination is unremarkable. Labs today including CBC and serum chemistry demonstrate a normal white count and are otherwise unremarkable. Lactic acid has normalized. Patient remains afebrile with a normal white count and improving respiratory status. Patient possibly had a aspiration pneumonitis without resulting infection secondary to her reported "coffee-ground emesis". Supplemental oxygen is to be tapered off as tolerated. D-dimer is to be checked to assess for pulmonary embolism. Patient is an anticipated discharge back to short-term rehab tomorrow. Problem list -Acute hypoxic respiratory failure -Possible aspiration pneumonia/pneumonitis -Elevated lactic acid, resolved -Reported coffee-ground emesis, resolved -Bipolar disorder -Chronic hyponatremia -GERD -Anxiety/depression -Diabetes mellitus -Hyperlipidemia Plan 1. Acute Hypoxic Respiratory Failure -Aspiration precautions -elevate head of bed -Supplemental oxygen, goal 88-92%, taper as tolerated -Total respiratory care -Follow cultures and sensitivities -D-dimer elevated. CTA does not show evidence of Pulmonary embolism 2. History of "Coffee Ground Emesis" -GI prophylaxis with omeprazole 3. Solitary Lung Nodule -Spiculated lung nodule of 10 x 15mm in the right upper lobe was found on the CTA -I spoke with . She recommends outpatient follow up for further evaluation and characterise of the nodule 4.Continue home meds: Atarax, olanzapine, Lyrica, Seroquel -Regular diet (chopped/thin) -DVT prophylaxis with Lovenox -Full code -Conservator Monique Qureshi and can be reached at [phone] -Obtain records from [facility] Problem List: 1. Acute hypoxemic respiratory failure 2. Aspiration into lower respiratory tract 3. Lactic acidosis Pain Ratin Pain Location: none Pain Goal: Remain pain free Pain Plan: none Tomorrow's Labs & Rationales: none Mira Polk 02/28/18 1152: Attending MD Review Statement Attending Statement Attending MD Statement: examined this patient, discuss w/resident/PA/FORMULA CHECKER, agreed w/resident/PA/FORMULA CHECKER, discussed with family, reviewed EMR data (avail), discussed with nursing, discussed with case mgmt, reviewed images, amended to note Attending Assessment/Plan: Pateint with no new complaints. She is on 1l oxygen supplementation. She has chronic osteoarthritis of bilateral knees and makes difficult to assess strength in lower extremities 2/2 pain. Could not appreciated facial droop. CTA chest revealed no PE and pneumonia. Patient off antibiotics. She has seen speech/ swallow here and follow recommendations for diet. CTA suggestive of spiculated 1.5 cm solitary pulmonary nodule. Obtain pulmonary eval i/p vs o/p. She has conservator appointed and can be reached on number in charts.
[2018-02-28 09:12] LABS: ABSOLUTE BASOPHIL COUNT 0 /CUMM (0.0-0.2); ABSOLUTE EOSINOPHIL COUNT 0.3 /CUMM (0.0-0.7); ABSOLUTE GRANULOCYTE CT 3.9 /CUMM (1.4-6.5); ABSOLUTE LYMPH COUNT 1.5 /CUMM (1.2-3.4); ABSOLUTE MONOCYTE COUNT 0.8 /CUMM (0.10-0.60); BASOPHIL % 0.1 % (0.0-2.0); EOSINOPHIL % 4.2 % (0-5); GRANULOCYTE % 59.8 % (42.2-75.2); HEMATOCRIT 35.1 % (37-47); MEAN CORPUSCULAR HGB 30.7 PG (27.0-31.0); MEAN CORPUSCULAR HGB CONC 33.3 G/DL (33.0-37.0); MEAN CORPUSCULAR VOLUME 92.2 FL (81.0-99.0); MEAN PLATELET VOLUME 6.9 FL (7.4-10.4); PLATELET COUNT 267 /CUMM (130-400); RBC DISTRIBUTION WIDTH 13.9 % (11.5-14.5); RED BLOOD CELL CT 3.81 /CUMM (4.20-5.40); WHITE BLOOD CELL COUNT 6.5 /CUMM (4.8-10.8)
--- NOTE | 2018-02-28 10:58 | Patient Discharge Instructions ---
Discharge Instructions General Discharge Information You were seen/treated for: Aspiration pneumonitis Elevated Blood Lactic acid levels Special Instructions: 1. Please inform your PCP about your admission to [facility] 2. Please schedule an outpatient appointment with Dr. Corrigan's office for follow up of the spot in your lungs. Diet Continue normal diet: Yes Activity Full Activity/No Limits: Yes Acute Coronary Syndrome Inclusion Criteria At DC or during hospital stay patient has or had the following: ACS DIAGNOSIS No Discharge Core Measures Meds if any: Prescribed or Continued at Discharge Meds if any: NOT Prescribed or Continued at Discharge Congestive Heart Failure Inclusion Criteria At DC or during hospital stay patient has or had the following: CHF DIAGNOSIS No Discharge Core Measures Meds if any: Prescribed or Continued at Discharge Meds if any: NOT Prescribed or Continued at Discharge Cerebrovascular accident Inclusion Criteria At DC or during hospital stay patient has or had the following: CVA/TIA Diagnosis No Discharge Core Measures Meds if any: Prescribed or Continued at Discharge Meds if any: NOT Prescribed or Continued at Discharge Venous thromboembolism Inclusion Criteria VTE Diagnosis No VTE Type NONE VTE Confirmed by (Test) NONE Discharge Core Measures - Per Current guidelines, there needs to be overlap - treatment for the first 5 days of Warfarin therapy. - If discharged on Warfarin prior to 5 days of - overlap therapy, the patient will need to be - assessed for post discharge needs including - *Post discharge parental anticoagulation - *Warfarin and/or parental anticoagulation education - *Follow up date to check INR post discharge At least 5 days overlap therapy as Inpatient No Meds if any: Prescribed or Continued at Discharge Note: Overlap Therapy is Warfarin and Anticoagulant Meds if any: NOT Prescribed or Continued at Discharge
[2018-02-28 15:11] VITALS: BP 130/68
[2018-02-28 16:44] VITALS: BP 130/68
== END 2018-02-28 18:58 | DRG 177 ==
LOC: ERH 04:06 → 2NA 06:40 → ERHI 06:40 → ENRESERV 07:28 → CANRESERV 07:28 → EDBEDREQ 08:28 → ENRESERV 08:35 → ENTRNSPT 09:02 → EDTRNSPTSTS 09:21 → EDTRNSPT 09:21 → 2NA 09:29 → CMPTRNSPT 10:05 → 2NA 02-28 07:38
PROVIDERS: Emergency Medicine; Preventive Medicine Addiction Medicine; Student in an Organized Health Care Education/Training Program
DX: J69.0 Pneumonitis due to inhalation of food and vomit (principal); J96.01 Acute respiratory failure with hypoxia; F30.9 Manic episode, unspecified; E87.1 Hypo-osmolality and hyponatremia; E87.2 Acidosis; E11.9 Type 2 diabetes mellitus without complications; E53.9 Vitamin B deficiency, unspecified; Z88.5 Allergy status to narcotic agent; Z88.0 Allergy status to penicillin; D64.9 Anemia, unspecified; K21.9 Gastro-esophageal reflux disease without esophagitis; E78.5 Hyperlipidemia, unspecified; R13.10 Dysphagia, unspecified; R91.1 Solitary pulmonary nodule; G89.29 Other chronic pain
CPT/HCPCS: 2NASP; 36415; 36592; 71045; 82436; 87040; 87070; 87449; 87450; 93005; 93010; 96374; 96375; 99291; J0131; J1650; J2930